=== PATIENT | male | born 1955 | race Caucasian/White ===

== ENCOUNTER 2021-08-19 14:19 | Inpatient (IN) | payer OTHER ==
[~2021-08-19] VITALS: Ht 175.3 cm; Wt 100.0 kg
[2021-08-19 14:50] LABS: BASOPHILS % (AUTO) 0.4 % (0-1); EOSINOPHILS # (AUTO) 0.1 X10'3 (0-0.9); EOSINOPHILS % (AUTO) 1.2 % (0-6); HEMATOCRIT 42.2 % (42.0-52.0); HEMOGLOBIN 14.4 g/dl (14.0-17.9); LYMPHOCYTES # (AUTO) 1.4 X10'3 (1.1-4.8); LYMPHOCYTES % (AUTO) 18.9 % (21-51); MEAN CORPUSCULAR HEMOGLOBIN 32.6 PG (27.0-31.0); MEAN CORPUSCULAR HGB CONC 34.2 g/dL (33.0-36.5); MEAN CORPUSCULAR VOLUME 95.3 FL (78-98); MEAN PLATELET VOLUME 8.1 FL (7.4-10.4); MONOCYTES # (AUTO) 0.5 X10'3 (0-0.9); MONOCYTES % (AUTO) 6.6 % (2-12); NEUTROPHILS # (AUTO) 5.3 X10'3 (1.8-7.7); NEUTROPHILS % (AUTO) 72.9 % (42-75); PLATELET COUNT 238 X10'3 (140-440); RED BLOOD COUNT 4.42 X10'6 (4.70-6.10); RED CELL DISTRIBUTION WIDTH 13.7 % (11.5-14.5); WHITE BLOOD COUNT 7.2 X10'3 (4.5-11.0)
[2021-08-19 14:56] LABS: ALANINE AMINOTRANSFERASE 52 U/L (12-78); ALBUMIN 3.7 G/DL (3.4-5.0); ALBUMIN/GLOBULIN RATIO 1.1 (1.1-1.5); ALKALINE PHOSPHATASE 72 IU/L (46-116); ANION GAP 12 (8-16); ASPARTATE AMINO TRANSFERASE 36 U/L (10-37); BILIRUBIN,TOTAL 0.4 MG/DL (0.1-1.0); BLOOD UREA NITROGEN 18 MG/DL (7-18); BUN/CREATININE RATIO 13.8 (5.4-32.0); CALCIUM 8.8 MG/DL (8.5-10.1); CHLORIDE 108 MMOL/L (99-107); GLUCOSE 136 MG/DL (70-104); POTASSIUM 3.7 MMOL/L (3.5-5.1); SODIUM 142 MMOL/L (135-145); TOTAL CARBON DIOXIDE 22.4 MMOL/L (24-32); TOTAL PROTEIN 7.2 G/DL (6.4-8.2); eGFR 56 ML/MIN
[2021-08-19] MEDS ORDERED: nitroGLYCERIN 0.4mg/hour patch TD ONE (15:30)
[2021-08-19] MEDS ORDERED: aspirin 81mg tab.chew PO ONE (15:30)
[2021-08-19] MEDS ORDERED: ondansetron/PF 4mg/2ml inj IV PRN (15:55)
[2021-08-19] MEDS ORDERED: magnesium hydroxide 30ml (MOM) UD suspension PO PRN (15:55)
[2021-08-19] MEDS ORDERED: magnesium 4gm in 100ml NS 100 ML IV PRN (15:55)
[2021-08-19] MEDS ORDERED: magnesium 2GM in 50ml NS 50 ML IV PRN (15:55)
[2021-08-19] MEDS ORDERED: regadenoson 0.4mg/5ml syringe IV ONE (15:55)
[2021-08-19] MEDS ORDERED: metoprolol tartrate 1mg/ml inj IV PRN (15:55)
[2021-08-19] MEDS ORDERED: acetaminophen 325mg tablet PO PRN (15:55)
[2021-08-19] MEDS ORDERED: morphine 2 MG/ML inj. syringe IV PRN ×2 (15:55)
[2021-08-19] MEDS ORDERED: nitroGLYCERIN 0.4mg SUBLingual tab SL PRN (15:55)
[2021-08-19] MEDS ORDERED: mag hydrox/Alum hydrox/simeth 30ml oral suspension PO PRN (15:55)
[2021-08-19] MEDS ORDERED: potassium Cl 40MEQ/1/2NS 520ml 520 ML IV PRN ×2 (15:55)
[2021-08-19] MEDS ORDERED: aminophylline 250mg/10ml inj. IV PRN (15:55)
[2021-08-19] MEDS ORDERED: magnesium Cl slow-release 64mg tablet PO PRN (15:55)
[2021-08-19] MEDS ORDERED: potassium Cl 20 mEq SR tablet PO PRN ×2 (15:55)
[2021-08-19] MEDS ORDERED: GABA300C PO ×2 (16:29→16:31)
[2021-08-19] MEDS ORDERED: LISI20TA28 PO (16:29)
[2021-08-19] MEDS ORDERED: PANT40TA54 PO (16:29)
[2021-08-19] MEDS ORDERED: IBUP-1986 PO (16:29)
[2021-08-19] MEDS ORDERED: OXCA150T14 PO (16:29)
[2021-08-19 16:32] LABS: HEMOGLOBIN A1C 6.3 % (4.5-6.2)
[2021-08-19] MEDS ORDERED: non-formulary drug (Ibuprofen 1 TAB) PO PRN (16:50)
[2021-08-19] MEDS: metoprolol succinate 25mg (24-HOUR) SR. Tablet PO SCH (17:20)
[2021-08-19] MEDS ORDERED: ibuprofen tablet 400 MG TABLET PO PRN (17:33)
[2021-08-19] MEDS: K and/or MAG REPLACEMENT MC SCH (20:00)
[2021-08-19] MEDS: oxcarbazepine 150mg tablet PO SCH (20:04)
[2021-08-19] MEDS: pantoprazole 40mg Tablet.DR PO SCH (20:04)
[2021-08-19] MEDS: docusate sod 100mg capsule PO SCH (20:04)
[2021-08-19] MEDS ORDERED: gabapentin 400mg capsule PO SCH (21:00)
[2021-08-19 22:00] VITALS: BP 126/72
[2021-08-20] VITALS (10 sets, daily range): BP systolic 100–157; BP diastolic 70–107
[2021-08-20 02:50] LABS: ALANINE AMINOTRANSFERASE 42 U/L (12-78); ALBUMIN 3.3 G/DL (3.4-5.0); ALKALINE PHOSPHATASE 64 IU/L (46-116); ANION GAP 10 (8-16); ASPARTATE AMINO TRANSFERASE 24 U/L (10-37); BILIRUBIN,TOTAL 0.5 MG/DL (0.1-1.0); BLOOD UREA NITROGEN 15 MG/DL (7-18); BUN/CREATININE RATIO 12.7 (5.4-32.0); CALCIUM 8.2 MG/DL (8.5-10.1); CHLORIDE 111 MMOL/L (99-107); CREATININE 1.18 MG/DL (0.60-1.10); GLUCOSE 105 MG/DL (70-104); POTASSIUM 3.6 MMOL/L (3.5-5.1); SODIUM 144 MMOL/L (135-145); TOTAL CARBON DIOXIDE 22.7 MMOL/L (24-32); TOTAL PROTEIN 6.5 G/DL (6.4-8.2); eGFR 62 ML/MIN
[2021-08-20 02:54] LABS: CHOL/HDL RATIO 5.4 (0.00-4.99); CHOLESTEROL 222 MG/DL (0-200); HDL CHOLESTEROL 41 MG/DL (35-60); LDL CHOLESTEROL 168 MG/DL (50-100); MAGNESIUM 2.4 MG/DL (1.5-2.4); TRIGLYCERIDES 123 MG/DL (20-135)
[2021-08-20 06:20] LABS: BASOPHILS % (AUTO) 0.3 % (0-1); EOSINOPHILS # (AUTO) 0.2 X10'3 (0-0.9); EOSINOPHILS % (AUTO) 2.3 % (0-6); HEMATOCRIT 40.5 % (42.0-52.0); HEMOGLOBIN 13.8 g/dl (14.0-17.9); LYMPHOCYTES # (AUTO) 1.3 X10'3 (1.1-4.8); LYMPHOCYTES % (AUTO) 15.9 % (21-51); MEAN CORPUSCULAR HEMOGLOBIN 32.6 PG (27.0-31.0); MEAN CORPUSCULAR VOLUME 95.9 FL (78-98); MEAN PLATELET VOLUME 7.9 FL (7.4-10.4); MONOCYTES # (AUTO) 0.6 X10'3 (0-0.9); MONOCYTES % (AUTO) 7.8 % (2-12); NEUTROPHILS % (AUTO) 73.7 % (42-75); PLATELET COUNT 225 X10'3 (140-440); RED BLOOD COUNT 4.23 X10'6 (4.70-6.10); RED CELL DISTRIBUTION WIDTH 14.1 % (11.5-14.5); WHITE BLOOD COUNT 8.2 X10'3 (4.5-11.0)
--- NOTE | 2021-08-20 06:41 | NUR ---
Patient in room PCU 3018. I have received report from JAVAD Guzman and had the opportunity to ask questions and assume patient care.
[2021-08-20] MEDS ORDERED: gabapentin 300mg capsule PO SCH (08:00)
[2021-08-20] MEDS: K and/or MAG REPLACEMENT MC SCH (08:00)
[2021-08-20] MEDS ORDERED: enoxaparin 40mg/0.4ml syringe SUBCUT SCH (08:00)
[2021-08-20] MEDS: docusate sod 100mg capsule PO SCH (08:00)
[2021-08-20] MEDS ORDERED: lisinopril 20mg tablet PO SCH (08:00)
[2021-08-20] MEDS: pantoprazole 40mg Tablet.DR PO SCH (11:23)
[2021-08-20] MEDS: metoprolol succinate 25mg (24-HOUR) SR. Tablet PO SCH (11:24)
[2021-08-20] MEDS: oxcarbazepine 150mg tablet PO SCH (11:25)
[2021-08-20] MEDS ORDERED: temazepam 15mg capsule PO PRN (13:35)
--- NOTE | 2021-08-20 13:38 | NUR ---
Paged EEG Re Raul King [id number] Pt needs EEG please. Thanks Kenisha [phone]
--- NOTE | 2021-08-20 14:22 | NUR ---
Patient is in bed with no distress with call light within reach.
--- NOTE | 2021-08-20 15:25 | NUR ---
Paged Dr Tipton PAGER ID: [phone] MESSAGE: Raul De Jesus [id number] Pt's Mariah is negative. Tele/Neuro Dr Belle wanted a Carbamezepine level. Thanks Kenisha [phone]
--- NOTE | 2021-08-20 17:30 | NUR ---
Pt stable for discharge per md orders. All pt belongings collected and sent with pt. All instructions were given, questions answered appropriately. PIV discontinued, cannula intact. Tele discontinued, teletype adjuster notified. Pt walked to lobby with standby assist. Drove home with family. Informed pt to follow up with PCP and neuro within one week.
== END 2021-08-20 17:30 | disposition home or self-care (01) | DRG 313 ==
LOC: ER 14:19 → ED HOLD 16:01 → PCU 3S 21:20
PROVIDERS: ADMIT Internal Medicine; ATTEND Internal Medicine
PROC: 4A02XM4 Measurement of Cardiac Total Activity, External Approach (ICD-10-PCS; principal; 2021-08-20)
PROC: 3E073KZ Introduction of Other Diagnostic Substance into Coronary Artery, Percutaneous Approach (ICD-10-PCS; 2021-08-20)
DX: R07.9 Chest pain, unspecified (principal); E78.00 Pure hypercholesterolemia, unspecified; I10 Essential (primary) hypertension; E78.5 Hyperlipidemia, unspecified; R00.0 Tachycardia, unspecified; R42 Dizziness and giddiness; R20.2 Paresthesia of skin; R06.02 Shortness of breath; R55 Syncope and collapse; R61 Generalized hyperhidrosis; F12.90 Cannabis use, unspecified, uncomplicated; Z88.0 Allergy status to penicillin; Z79.899 Other long term (current) drug therapy
CPT/HCPCS: 36415; 71045; 78452; 80053; 80061; 80156; 83036; 83735; 83880; 84484; 85025; 87081; 93005; 93017; 93306; 99285; A9500; G0378; J1650; J2785